=== PATIENT | female | born 2000 | race Caucasian/White ===

== ENCOUNTER 2019-10-16 07:11 | Inpatient (IN) | payer MEDICAID ==
[~2019-10-16] VITALS: Ht 152.4 cm; Wt 49.9 kg
[2019-10-16] MEDS ORDERED: SODIUM CHLORIDE 0.9% 1,000 ML IV ONE (07:38)
[2019-10-16] MEDS ORDERED: LEVETIRACETAM 1000MG/100ML 100 ML IV ONE (07:45)
[2019-10-16 07:47] LABS: BASOPHILS % 0.3 % (0.0-2.0); EOSINOPHILS % 0.4 % (0.0-5.0); HEMATOCRIT. 35.8 % (36.0-48.0); HEMOGLOBIN. 12.2 g/dL (12.0-16.0); LYMPHOCYTES % 34.8 % (20.0-50.0); MEAN CORPUSCULAR HEMOGLOBIN 29.1 pg (28.0-32.0); MEAN CORPUSCULAR VOLUME 85.4 fL (81.0-99.0); MEAN PLATELET VOLUME 8.7 fl (7.4-10.4); MONOCYTES % 6.2 % (2.0-8.0); NEUTROPHILS % 58.3 % (40.0-76.0); PLATELET 206 x1000/uL (130-400); RED BLOOD CELL COUNT 4.19 mill/uL (4.2-5.4)
[2019-10-16 07:54] LABS: CHLORIDE 108 mEq/L (98-107)
[2019-10-16 07:58] LABS: ETHANOL BLOOD < 10 mg/dL
[2019-10-16 08:03] LABS: CREATINE KINASE 119 IU/L (26-192)
[2019-10-16 08:07] LABS: HCG SCREEN NEGATIVE
[2019-10-16 08:17] LABS: CARBAMAZEPINE < 0.5 ug/mL (4-12); PHENOBARBITAL < 2.1 ug/mL (15.0-40.0); VALPROIC ACID < 3.0 ug/mL (50-100)
[2019-10-16] MEDS ORDERED: POTASSIUM CHLORIDE 20MEQ TABLET SR PO ONE (08:30)
[2019-10-16 08:58] LABS: COLOR URINE YELLOW (YELLOW); KETONES URINE 3+ (NEGATIVE); LEUKOCYTE ESTERASE URINE NEGATIVE (NEGATIVE); NITRITE URINE NEGATIVE (NEGATIVE); OCCULT BLOOD URINE TRACE (NEGATIVE); PROTEIN URINE NEGATIVE (NEGATIVE); SPECIFIC GRAVITY URINE 1.011 (1.005-1.030); UROBILINOGEN URINE 0.2 E.U./dL (0.2-1.0)
[2019-10-16 09:00] LABS: CLARITY URINE SL HAZY (CLEAR)
[2019-10-16] MEDS ORDERED: MORPHINE SULFATE 4 MG/ML CPJ (NOT FOR IM USE) IV ONE (09:30)
[2019-10-16] MEDS ORDERED: ONDANSETRON HCL 4MG/2ML INJ IV ONE (09:30)
[2019-10-16 10:07] LABS: *AMPHETAMINES SCREEN URINE NEGATIVE (NEGATIVE); *BARBITURATES SCREEN URINE NEGATIVE (NEGATIVE); *BENZODIAZEPINES SCREEN URINE NEGATIVE (NEGATIVE); *COCAINE SCREEN URINE NEGATIVE (NEGATIVE); METHADONE URINE SCREEN NEGATIVE (NEGATIVE)
[2019-10-16 10:08] LABS: OPIATES URINE SCREEN NEGATIVE (NEGATIVE); PHENCYCLIDINE URINE SCREEN NEGATIVE (NEGATIVE)
[2019-10-16 10:15] LABS: CANNABINOID URINE SCREEN PRESUMTIVE POSITIVE (NEGATIVE)
[2019-10-16] MEDS ORDERED: BACITRACIN ZINC OINT UDPKT TOP ONE (10:30)
[2019-10-16] MEDS ORDERED: TETANUS, DIPHTHERIA, PERTUSSIS VAC/PF 0.5ML (>7YR OLD) IM ONE (10:30)
[2019-10-16 14:50] VITALS: BP 98/60
[2019-10-16 16:00] VITALS: BP 98/60
[2019-10-16] MEDS ORDERED: ACETAMINOPHEN 325MG TABLET PO PRN (16:15)
[2019-10-16] MEDS ORDERED: MAGNESIUM/ALUMINUM HYDROXIDE/SIMETHICONE 30ML UDC PO PRN (16:15)
[2019-10-16] MEDS ORDERED: CLONIDINE 0.1MG TABLET PO PRN (16:15)
[2019-10-16] MEDS ORDERED: DOCUSATE SODIUM 100MG CAPSULE PO PRN (16:15)
[2019-10-16] MEDS ORDERED: HYDROCODONE/ACETAMINOPHEN 5/325MG TABLET PO PRN (16:15)
[2019-10-16] MEDS ORDERED: LORAZEPAM 2MG/ML CPJ IV PRN (16:15)
[2019-10-16] MEDS: ENOXAPARIN 40MG/0.4ML SYR SUBCUT SCH (18:23)
[2019-10-16 19:56] VITALS: BP 109/63
[2019-10-16] MEDS: LEVETIRACETAM 500MG TABLET PO SCH (20:46)
[2019-10-17] VITALS: BP 114/64
[2019-10-17 03:58] VITALS: BP 104/54
[2019-10-17 06:53] LABS: BASOPHILS % 0.5 % (0.0-2.0); EOSINOPHILS % 0.3 % (0.0-5.0); HEMOGLOBIN. 11.8 g/dL (12.0-16.0); MEAN CORPUSCULAR HEMOGLOBIN 29.2 pg (28.0-32.0); MEAN CORPUSCULAR VOLUME 86.6 fL (81.0-99.0); MEAN PLATELET VOLUME 9.3 fl (7.4-10.4); NEUTROPHILS % 59.2 % (40.0-76.0); PLATELET 188 x1000/uL (130-400); RED BLOOD CELL COUNT 4.05 mill/uL (4.2-5.4); RED CELL DISTRIBUTION WIDTH 12.9 % (11.6-14.6)
[2019-10-17 07:17] LABS: CHLORIDE 111 mEq/L (98-107)
[2019-10-17 07:24] LABS: PHOSPHORUS 3.1 mg/dL (2.5-4.9)
[2019-10-17 07:44] VITALS: BP 103/48
[2019-10-17] MEDS: LEVETIRACETAM 500MG TABLET PO SCH (08:58)
[2019-10-17] MEDS: ENOXAPARIN 40MG/0.4ML SYR SUBCUT SCH (08:59)
[2019-10-17 12:00] VITALS: BP 107/71
[2019-10-17] MEDS ORDERED: KEPP500 PO (12:01)
[2019-10-17 13:23] VITALS: BP 107/71
== END 2019-10-17 14:00 | disposition home or self-care (01) | DRG 53 ==
LOC: EDBD 07:11 → ER 07:11 → EDBEDREQ 08:27 → 6WST 10:11 → EDBEDREQ 10:48 → EDBEDREQTM 10:48 → ENRESERV 13:54
PROVIDERS: ADMIT Internal Medicine; ATTEND Internal Medicine
DX: G40.89 Other seizures (principal); S00.81XA Abrasion of other part of head, initial encounter; E87.6 Hypokalemia; E87.8 Other disorders of electrolyte and fluid balance, not elsewhere classified; X58.XXXA Exposure to other specified factors, initial encounter; Y93.89 Activity, other specified; Y92.89 Other specified places as the place of occurrence of the external cause; Y99.8 Other external cause status; F12.929 Cannabis use, unspecified with intoxication, unspecified
CPT/HCPCS: 36415; 70486; 71045; 80048; 80053; 80156; 80165; 80184; 80185; 80305; 80320; 81003; 82550; 83735; 84100; 84443; 84484; 84703; 85025; 90715; 93005; 99291; J1650; J1953; J2270; J2405; J7030; G0480